=== PATIENT | male | born 1990 | race Caucasian/White ===

== ENCOUNTER 2019-11-30 16:12 | Emergency (ER) | payer MEDICAID ==
[~2019-11-30] VITALS: Ht 170.2 cm; Wt 79.4 kg
[2019-11-30 16:18] VITALS: BP 129/74
--- NOTE | 2019-11-30 16:30 | NUR ---
PT C/O GENERALIZED BODY RASH SPECIFICALLY TO FACE AND GENITAL AREA WITH IRRITATION AND ITCHINESS X3 DAYS. PT DENIES FEVER, COUGH, SOB, CP, N/V/D, OR SICK CONTACTS. DENIES ALLERGY TO ANYTHING BESIDES SULFA. PATIENT STATES PAIN OF 0/10 AT THIS TIME; VSS; PATIENT POSITIONED FOR COMFORT; HOB ELEVATED; BEDRAILS UP X1; BED DOWN. ER MD MADE AWARE OF PT STATUS.
--- NOTE | 2019-11-30 16:58 | NUR ---
DR. THOMSON IS EVALUATING PT AT BEDSIDE.
[2019-11-30 17:09] VITALS: BP 122/68
--- NOTE | 2019-11-30 17:09 | NUR ---
Patient discharged with v/s stable. Written and verbal after care instructions given and explained. Patient alert, oriented and verbalized understanding of instructions. Ambulatory with steady gait. All questions addressed prior to discharge. ID band removed. Patient advised to follow up with PMD. Rx of Medro Medrol and diphenhydramine hydrochloride given. Patient educated on indication of medication including possible reaction and side effects. Opportunity to ask questions provided and answered.
== END 2019-11-30 17:05 | disposition home or self-care (01) ==
LOC: MED 16:12
DX: L25.3 Unspecified contact dermatitis due to other chemical products (principal); Z88.2 Allergy status to sulfonamides
CPT/HCPCS: 99283